=== PATIENT | male | born 1975 | race African-American/Black ===

== ENCOUNTER 2021-06-20 14:26 | Emergency (ER) | payer BC ==
[2021-06-20 14:43] VITALS: BP 129/86; PULSE 78; TEMP 98.3; BMI 25.4
== END 2021-06-20 15:22 | disposition home or self-care (01) ==
LOC: FER 14:26
PROC: 0HQLXZZ Repair Left Lower Leg Skin, External Approach (ICD-10-PCS; principal; 2021-06-20)
DX: S81.812A Laceration without foreign body, left lower leg, initial encounter (principal); W22.8XXA Striking against or struck by other objects, initial encounter; Y92.89 Other specified places as the place of occurrence of the external cause
CPT/HCPCS: 12001-25; 99284-25

== ENCOUNTER 2021-07-01 12:11 | Emergency (ER) | payer BC ==
[2021-07-01 12:24] VITALS: BP 126/85; PULSE 74; BMI 25.4
== END 2021-07-01 12:27 | disposition home or self-care (01) ==
LOC: FER 12:11
DX: Z48.02 Encounter for removal of sutures (principal)
CPT/HCPCS: 99281-25